=== PATIENT | female | born 1990 ===

== ENCOUNTER → 2018-10-08 | Outpatient (CLI) | payer OTHER | LOC: LAB SHORT 09:22 → PLD 09:22 | DX: N93.8 Other specified abnormal uterine and vaginal bleeding (principal) | CPT/HCPCS: 88305 ==

== ENCOUNTER → 2019-12-09 | Outpatient (CLI) | payer OTHER ==
[2019-12-12 04:06] LABS: CHLAMYDIA TRACHOMATIS, NAA Negative (Negative); NEISSERIA GONORRHOEAE, NAA Negative (Negative)
== END | disposition home or self-care (01) ==
LOC: LAB 15:30 → LAB SHORT 15:30
PROVIDERS: Obstetrics & Gynecology
DX: Z34.83 Encounter for supervision of other normal pregnancy, third trimester (principal); Z3A.36 36 weeks gestation of pregnancy
CPT/HCPCS: 87081; 87491; 87591; 87653

== ENCOUNTER 2020-01-05 21:56 | Inpatient (IN) | payer OTHER ==
[~2020-01-05] VITALS: Ht 157.5 cm; Wt 126.8 kg
[2020-01-05] MEDS ORDERED: PRENATAL TABLE1 EAC2 (23:35)
[2020-01-06 00:49] LABS: BASOPHILS ABSOLUTE AUTO 0.03 K/mm3 (0.00-0.23); BASOPHILS PERCENT AUTO 0 % (0-2); EOSINOPHILS PERCENT AUTO 0 % (0-6); Hematocrit 35.9 % (33.0-51.0); IMMATURE GRAN ABSOLUTE AUTO 0.12 K/mm3 (0.00-0.10); IMMATURE GRAN PERCENT AUTO 1 % (0-1); LYMPHOCYTES ABSOLUTE AUTO 1.55 K/mm3 (0.84-5.20); LYMPHOCYTES PERCENT AUTO 8 % (21-46); MONOCYTES ABSOLUTE AUTO 0.61 K/mm3 (0.16-1.47); MONOCYTES PERCENT AUTO 3 % (4-13); Mean Corpuscular HGB Conc 33.4 g/dL (31.5-36.5); Mean Corpuscular Volume 84 fL (80-100); Mean Platelet Volume 12.5 fL (9.1-12.4); NEUTROPHILS ABSOLUTE AUTO 17.93 K/mm3 (1.96-9.15); NEUTROPHILS PERCENT AUTO 89 % (41-73); Platelet Count 191 K/mm3 (150-400); RDW Coefficient Variation 14.3 % (11.7-14.2); RDW Standard Deviation 43.6 fL (35.1-46.3); Red Blood Cell Count 4.28 M/mm3 (3.80-5.20); White Blood Cell Count 20.24 K/mm3 (4.00-11.30)
--- NOTE | 2020-01-06 14:43 | NUR ---
DR PEDERSEN CHANGED THE EPIDURAL PUMP HIMSELF TO 15ML/HR FOR EPIDURAL SOLUTION, ALL OTHER SETTING REMAINED THE SAME, 5ML BOLUS EVERY 10 MINUTES WITH A TOTAL HOURLY INFUSED OF 30ML
--- NOTE | 2020-01-06 23:13 | NUR ---
PT IS TO CALL AND SCHEDULE FOLLOW UP APPT. BABY TRANSPORTED AND UNSURE IF SHE WILL BE ABLE TO COMMIT TO A DAY AND TIME
--- NOTE | 2020-01-06 23:59 | NUR ---
[facility]CHARG[facility] WITH . [facility] INF[facility].
== END 2020-01-06 23:59 | disposition home or self-care (01) | DRG 807 ==
LOC: OBS 21:56 → BC 21:56 → OBS 01-06 00:02 → BC 01-06 00:03
PROVIDERS: ADMIT Obstetrics & Gynecology
PROC: 10D07Z6 Extraction of Products of Conception, Vacuum, Via Natural or Artificial Opening (ICD-10-PCS; principal; 2020-01-06)
PROC: 0HQ9XZZ Repair Perineum Skin, External Approach (ICD-10-PCS; 2020-01-06)
PROC: 10H07YZ Insertion of Other Device into Products of Conception, Via Natural or Artificial Opening (ICD-10-PCS; 2020-01-06)
PROC: 3E0R3BZ Introduction of Anesthetic Agent into Spinal Canal, Percutaneous Approach (ICD-10-PCS; 2020-01-06)
DX: O42.02 Full-term premature rupture of membranes, onset of labor within 24 hours of rupture (principal); Z37.0 Single live birth; O76 Abnormality in fetal heart rate and rhythm complicating labor and delivery; O70.0 First degree perineal laceration during delivery; Z3A.40 40 weeks gestation of pregnancy; O77.0 Labor and delivery complicated by meconium in amniotic fluid; O99.214 Obesity complicating childbirth; E66.01 Morbid (severe) obesity due to excess calories
CPT/HCPCS: 36415; 51702; 82947; 85025; 86850; 86900; 86901; J0690; J1885; J2001; J2210; J2270; J2550; J2590; J3010; J7120